=== PATIENT | female | born 1950 | race Caucasian/White ===

== ENCOUNTER → 2016-06-18 | Outpatient (CLI) | payer OTHER ==
[~2016-06-18] MED LIST: AMLO5TAB2 PO; MTF500T PO; SMV20T PO
--- OUTSIDE RECORDS SUMMARY | 2016-06-18 15:26 | XMS REPORT | Continuity of Care Document ---
Author Author [facility] Organization [facility] Address Unknown Phone Unavailable Care Team Providers Care Imaging Account Manager Name Role Phone DebbiMarvin cervantes PCP [phone] Source Comments Some departments are not documenting in the electronic medical record. If you do not see the information that you expected, contact Release of Information in the Health Information Management department at [phone] for further assistance in locating additional records.[facility] Active Allergies and Adverse Reactions No Known Allergies Current Medications Prescription Sig. Disp. Refills Start End Date Status Date amLODIPine (NORVASC) 5 mg Take 5 mg by mouth daily. Active tablet simvastatin (ZOCOR) 20 mg Take 20 mg by mouth at Active tablet bedtime daily. metFORMIN (GLUCOPHAGE) Take 500 mg by mouth Active 500 mg tablet daily. ALPRAZolam (XANAX) 0.5 mg Take 1 mg by mouth at Active tablet bedtime daily. MULTIVITAMINS WITH Take by mouth. Active FLUORIDE (MULTI-VITAMIN PO) valsartan (DIOVAN) 320 mg Take 320 mg by mouth Active tablet daily. Active Problems Problem Noted Date Fasciculations 11/07/2013 Most Recent Encounters Date Type Specialty Providers Description 04/25/2016 Telephone Neurology Joseph Escalante MD Appointment Request - MUB to schedule 04/02/2016 Telephone Neurology Allan Blackmon DO Prior Authorization - skin biopsy; Referral 03/28/2016 Office Visit Neurology Allan Blackmon DO ITB syndrome ( Primary Dx); Fasciculations Social History Tobacco Use Types Packs/Day Years Used Date Former Smoker Quit: 06/08/1999 Tobacco Cessation: Counseling Given: Yes Comments: Alcohol Use Drinks/Week oz/Week Comments Yes 3 Drinks per week Last Filed Vital Signs Vital Sign Reading Time Taken Blood Pressure 144/80 03/28/2016 8:21 AM CDT Pulse 97 03/28/2016 8:21 AM CDT Temperature 36.9 C (98.4 F) 03/28/2016 8:21 AM CDT Respiratory Rate - - Height 1.575 m (5' 2.01") 03/28/2016 8:21 AM CDT Weight 86.637 kg (191 lb) 03/28/2016 8:21 AM CDT Body Mass Index 34.93 03/28/2016 8:21 AM CDT Oxygen Saturation 97% 03/28/2016 8:21 AM CDT Plan of Care Health Maintenance Due Date Last Done Comments Hepatitis C Screening 1950 Physical (Comprehensive) 1957 Exam Pertussis Vaccine 1961 Tetanus Vaccine 1967 Breast Cancer Screening 1990 Colorectal Cancer 2000 Screening Shingles Vaccine 2010 Osteoporosis Screening 2015 Prevnar/Pneumovax (#1) 2015 Influenza Vaccine 02/07/2016 Results from Last 3 Months Not on file
--- NOTE | 2016-06-18 15:55 | Diagnostic Imaging Report ---
INDICATION: Wheezing with productive cough. FINDINGS: Some flattening of the diaphragms and bilateral mild symmetrical hyperexpansion of the lungs. There is borderline thickening of the central airways but no infiltrate. No effusion, pneumothorax or failure. IMPRESSION: Upper limits normal lung volumes with borderline thickening of the central airways but no pneumonia or acute pleural pathology. Dictated by: Dictated on workstation # [id number]
== END ==
LOC: RAD 15:22
PROVIDERS: ATTEND Family Medicine
DX: R06.2 Wheezing (principal); R05 Cough
CPT/HCPCS: 71020

== ENCOUNTER 2016-11-26 05:30 | Outpatient (CLI) | payer BC ==
[~2016-11-26] VITALS: Ht 162.6 cm; Wt 86.2 kg
[~2016-11-26 05:30] MED LIST changes: -ALPR1TAB2 PO; -CALC-654 PO; -FURO-125 PO; -LATA2.5D5 OU; -MAGN250T13 PO; -PANT40TA2 PO; -VALS320T14 PO
[2016-11-26] MEDS ORDERED: ALPR1TAB2 PO (13:35)
[2016-11-26] MEDS ORDERED: LATA2.5D5 OU (13:35)
[2016-11-26] MEDS ORDERED: FURO-125 PO (13:35)
[2016-11-26] MEDS ORDERED: MAGN250T13 PO (13:35)
[2016-11-26] MEDS ORDERED: CALC-654 PO (13:35)
[2016-11-26] MEDS ORDERED: VALS320T14 PO (13:35)
[2016-11-28] MEDS ORDERED: PANT40TA2 PO (12:02)
== END 2016-11-26 13:38 ==
LOC: PREOP 05:30
PROVIDERS: ATTEND Surgery Pediatric Surgery
DX: Z01.818 Encounter for other preprocedural examination (principal); Z12.11 Encounter for screening for malignant neoplasm of colon; Z86.010 Personal history of colon polyps; K21.9 Gastro-esophageal reflux disease without esophagitis

== ENCOUNTER → 2016-11-26 | Outpatient (CLI) | payer BC, OTHER ==
[~2016-11-26] MED LIST changes: +ALPR1TAB2 PO; +CALC-654 PO; +FURO-125 PO; +LATA2.5D5 OU; +MAGN250T13 PO; +PANT40TA2 PO; +VALS320T14 PO
--- NOTE | 2016-11-28 10:17 | Diagnostic Imaging Report ---
Bilateral screening mammogram The current study was also evaluated with a Computer Aided Detection (CAD) system. Indication: Screening. No current complaints stated on the questionnaire. COMPARISON: 02/29/16 FINDINGS: The breasts are composed of scattered fibroglandular densities. Occasional benign-appearing calcifications are seen. Allowing for technique and positional differences, no suspicious change is seen. IMPRESSION: No significant change. ACR BI-RADS Category 2: Benign findings. Result letter will be mailed to the patient. Note: At least 10% of breast cancer is not imaged by mammography. Dictated by: Dictated on workstation # [id number]
== END ==
LOC: RAD 15:14
PROVIDERS: ATTEND Family Medicine
DX: Z12.31 Encounter for screening mammogram for malignant neoplasm of breast (principal)
CPT/HCPCS: 77067

== ENCOUNTER 2016-11-28 09:28 | Day surgery (SDC) | payer BC, OTHER ==
[~2016-11-28] VITALS: Ht 162.6 cm; Wt 86.2 kg
[~2016-11-28 09:28] MED LIST changes: +ALPR1TAB2 PO; +CALC-654 PO; +FURO-125 PO; +LATA2.5D5 OU; +MAGN250T13 PO; +VALS320T14 PO
--- NOTE | 2016-11-28 09:29 | Conscious Sedation/ASA ---
Conscious Sedation Pre-Proced Time Reviewed: 09:00 ASA Class: 2 Airway Mallampati Classification: (huslia appropriate class) I. II. III, IV Lungs Heart ASA score ASA 1: a normal healthy patient ASA 2: a patient with a mild systemic disease (mid diabetes, controlled hypertension, obesity ASA 3: a patient with a severe systemic disease that limits activity (angina , COPD, prior Myocardial infarction) ASA 4: a patient with an incapacitating disease that is a constant threat to life (CHF, renal failure) ASA 5: a moribund patient not expected to survive 24 hrs. (ruptured aneurysm) ASA 6: a declared brain patient whose organs are being harvested. For emergent operations, add the letter E after the classification Grade 2 Sedation Plan: Analgesia, Amnesia, Plan communicated to team members, Discussed options with patient/fam, Discussed risks with patient/fam Note The patient is an appropriate candidate to undergo the planned procedure, sedation, and anesthesia. The patient immediately re-assessed prior to indication. CRISTIN MUSE MD Nov 28, 2016 9:29 am
[2016-11-28] MEDS ORDERED: morphine INJ 10 MG/ML 1ML (SYR OR VIAL) IV PRN (09:30)
[2016-11-28] MEDS ORDERED: ACETAMINOPHEN 325 MG TABLET/CAPLET (TYLENOL) PO PRN (09:30)
[2016-11-28] MEDS ORDERED: ONDANSETRON 4 MG/2 ML (SDV) Z0FRAN IV PRN (09:30)
[2016-11-28] MEDS ORDERED: HYDROcodone/APAP 5 MG/325 MG (LORTAB) TAB PO PRN (09:30)
--- NOTE | 2016-11-28 09:30 | Progress Note-Pre Operative ---
Pre-Operative Progress Note H&P Reviewed The H&P was reviewed, patient examined and no changes noted. Date Seen by Provider: Nov 28, 2016 Time Seen by Provider: 09:00 Date H&P Reviewed: Nov 28, 2016 Time H&P Reviewed: 09:00 Pre-Operative Diagnosis: hx of colon polyp, GERD CRISTIN MUSE MD Nov 28, 2016 9:30 am
[2016-11-28] MEDS ORDERED: FLUMAZENIL (ROMAZICON) 0.1 MG/ML 5 ML VIAL INJ PRN (09:45)
[2016-11-28] MEDS ORDERED: HURRICAINE EXT TUBE (BENZOCAINE) XX PRN (09:45)
[2016-11-28] MEDS ORDERED: LIDOCAINE JELLY 2% (XYLOCAINE) 5 ML TUBE MM PRN (09:45)
[2016-11-28] MEDS ORDERED: NALOXONE 0.4 MG/ML 1 ML (NARCAN) VIAL IVP PRN (09:45)
[2016-11-28] MEDS ORDERED: NS IV 500 ML 500 ML IV PRN (09:55)
[2016-11-28 09:56] VITALS: BP 150/91
[2016-11-28] MEDS ORDERED: MIDAZOLAM 2 MG/2 ML (VERSED) VIAL ONE ×7 (10:18→11:05)
[2016-11-28] MEDS ORDERED: HURRICAINE EXT TUBE (BENZOCAINE) ONE (10:19)
[2016-11-28] MEDS ORDERED: fentaNYL INJECTION 100 MCG/2 ML AMP ONE ×3 (10:19→11:10)
[2016-11-28] MEDS ORDERED: LIDOCAINE JELLY 2% (XYLOCAINE) 5 ML TUBE ONE (10:19)
[2016-11-28] MEDS: MIDAZOLAM 2 MG/2 ML (VERSED) VIAL IVP PRN ×7 (10:33→11:00)
[2016-11-28] MEDS: fentaNYL INJECTION 100 MCG/2 ML AMP IVP PRN ×4 (10:34→11:20)
[2016-11-28] MEDS ORDERED: ONDANSETRON 4 MG/2 ML (SDV) Z0FRAN ONE (11:27)
[2016-11-28] MEDS ORDERED: NS IV 500 ML 500 ML ONE (11:30)
[2016-11-28 11:55] VITALS: BP 136/88
--- NOTE | 2016-11-28 12:01 | Progress Note-Post Operative ---
Post-Operative Progess Note Surgeon (s)/Field Service Rep (s) Surgeon CRISTIN MUSE MD Field Service Rep: none Pre-Operative Diagnosis hx of colon polyp, GERD Post-Operative Diagnosis reflux eosphagitis(class B), small HH(1cm), moderate gastritis. chronic stage 2 ext and int hemorrhoids, sessile ascending colon polyp (1.25x0.5cm) Procedure & Operative Findings Date of Procedure 11/28/16 Procedure Performed/Findings EGD with bx. Colonoscopy with polypectomy and submucosal injection. Anesthesia Type CS Estimated Blood Loss Estimated blood loss (mL): minimal Specimens/Packing Specimens Removed GE jxn, antrum, ascending colon polyp CRISTIN MUSE MD Nov 28, 2016 12:01 pm
[2016-11-28] MEDS ORDERED: PANT40TA2 PO (12:02)
--- NOTE | 2016-11-28 12:03 | Discharge Inst-Surgical ---
D/C Lap Instructions-MICHA New, Converted, or Re-Newed RX: RX on Chart Follow Up Appt in 2 weeks Activity as tolerated High Fiber Diet 25g or more per day Avoid Alcohol, Caffeine, Spicy Yaurel and Acid foods. Drink 64 fluid oz or more of fluids per day. Symptoms to Report: Fever over 101 degree F, Nausea/Vomiting If any problems/questions: Contact your physician or go to Emergency Room CRISTIN MUSE MD Nov 28, 2016 12:03 pm
[2016-11-28 12:25] VITALS: BP 120/77
[2016-11-28 12:35] VITALS: BP 120/77
--- NOTE | 2016-11-28 19:49 | OPERATIVE REPORT ---
DATE OF SERVICE: 11/28/2016 ATTENDING PHYSICIAN: Marvin Weston DO PREOPERATIVE DIAGNOSES: History of colon polyps, gastroesophageal reflux disease. POSTOPERATIVE DIAGNOSES: Reflux esophagitis class B, small hiatal hernia approximately 1 cm in size, moderate gastritis. Chronic stage II external and internal hemorrhoids, sessile polyp of the ascending colon approximately 1.25 cm in size. PROCEDURE: EGD with biopsy, colonoscopy with biopsy, and submucosal injection. SURGEON: Cristin Muse MD ANESTHESIA: Conscious sedation. ESTIMATED BLOOD LOSS: Minimal. FINDINGS: EGD: Reflux esophagitis class B. No strictures or ulcerations, small hiatal hernia approximately 1 cm in size. Moderate severity gastritis more towards the stomach antrum. There were no formal ulcers, polyps or any neoplasms. Pylorus and duodenum appeared normal. Colonoscopy: Chronic stage II external and internal hemorrhoids, not actively edematous nor inflamed and no bleeding. There was a sessile polyp of one of the folds of the ascending colon which was oval in shape, in approximately 1.25 cm in largest diameter; however, thin and approximately 5 mm wide. DISPOSITION: The patient tolerated the procedure well. INDICATIONS: The patient is a 66-year-old female with history of colon polyp. Her first colonoscopy was in June 2011. Two polyps were identified of the splenic flexure and two of the distal transverse colon, and three of the sigmoid colon, which were all biopsied and found to be benign hyperplastic polyps as well as a tubular adenoma. She had a followup colonoscopy in 2012 which did not show any polyps. Since that time she has been doing well and does not report any major issues with diarrhea nor constipation as well as no red blood per rectum nor any dark tarry stools. She states that she has had a history of gastroesophageal reflux disease which has worsened. She will feel a burning sensation in the epigastric region as well as increased belching. DESCRIPTION OF PROCEDURE: The patient was brought to the endoscopy suite, laid in the left lateral decubitus position with the head slightly elevated. After adequate IV pain and sedative medications and conscious sedation anesthesia, the mouthpiece was applied. Endoscope was placed in the mouth, visualizing the pharynx and hypopharyngeal region. Vocal cords, epiglottis and vallecula identified and appeared to be normal. The endoscope was then gently intubated in the esophageal opening and esophagus insufflated. The endoscope was then advanced to the first, second, and third portions of the esophagus. At the level of the GE junction, a reflux esophagitis class B identified. There were no ulcers or strictures identified in this region. A biopsy was taken with forceps with visualization of good hemostasis. The endoscope was then easily advanced in the stomach. The endoscope retroflexed, visualizing a small hiatal hernia approximately 1 cm in size. There was a moderate severity gastritis, more focused towards the stomach antrum. There were no formal ulcers, polyps or any neoplasms identified. A biopsy was taken of the stomach antrum with visualization of good hemostasis. The endoscope was then advanced to the pylorus into the first and second portions of the duodenum, which appeared to be normal. The endoscope was then slowly withdrawn taking a second look and suctioning residual air with no additional findings. The patient tolerated this portion of the procedure well. We will recommend the necessary lifestyle and diet accommodation including small and more frequent meals, avoiding eating at night as well as head elevation while laying supine. Medical weight loss regimen would also benefit her symptoms. We will also recommend cessation from caffeinated beverages, alcoholic beverages as well as spicy, greasy, and acidic foods. We will also start her on Protonix 40 mg daily. Under the same conscious sedation anesthesia, we then proceeded with the colonoscopy portion of the procedure. A digital rectal examination was performed which revealed chronic stage II external and internal hemorrhoids, not actively demonstrating inflammation or no bleeding. Normal sphincter tone was felt and there were no palpable masses. The endoscope was then intubated to the anus and rectum gently insufflated. The endoscope was then advanced to the valves of Mcdonald of the rectum with no polyps or any neoplasms identified. We then proceeded through the sigmoid colon where no diverticulosis identified. The endoscope was then advanced to the remainder of the descending, transverse, and ascending colon. At the level of the ascending colon, along one of the folds, was a oval shaped sessile polyp approximately 1.25 x 0.5 cm in size. This was biopsied and destroyed using a biopsy forceps and electrocautery with visualization of good hemostasis. This was also injected submucosally with black ink. The endoscope was then advanced to the cecum which was normal. The endoscope was then slowly withdrawn while taking a second look and suctioning of residual air with no additional findings. The patient tolerated the procedure well. We will have her continue with medical management with high fiber diet with at least 25 grams of fiber per day as well as at least 64 fluid ounces of water daily to promote soft stools on a daily basis. We will await the biopsy results; however, recommended a followup colonoscopy within the next year. Job ID: [id number] DocumentID: [id number] Dictated Date: 11/28/2016 11:47:21 Loan Supervisor Date: 11/28/2016 19:48:31 Dictated By: CRISTIN MUSE MD
--- OUTSIDE RECORDS SUMMARY | 2016-12-01 14:43 | XMS REPORT | Continuity of Care Document ---
Author Author [facility] Organization [facility] Address Unknown Phone Unavailable Care Team Providers Care Accounting Associate Name Role Phone Johanachristina Marvin PCP [phone] Source Comments Some departments are not documenting in the electronic medical record. If you do not see the information that you expected, contact Release of Information in the Health Information Management department at [phone] for further assistance in locating additional records.[facility] Active Allergies and Adverse Reactions No Known [...] Active Problems Problem Noted Date Fasciculations 11/07/2013 Social History Tobacco Use Types Packs/Day Years [...] Screening 2015 Prevnar/Pneumovax (#1) 2015 Influenza Vaccine 02/06/2017 Results from Last 3 Months Not on file
--- OUTSIDE RECORDS SUMMARY | 2016-12-01 14:44 | XMS REPORT | Continuity of Care Document ---
Author Author [facility] Organization [facility] Address Unknown Phone Unavailable Allergies Active Description Code Type Severity Reaction Onset Reported/Identified Relationship to Patient Clinical Status Yes No Allergy Information Available [id number] Drug Allergy Unknown N/A 07/11/2011 Yes No Known Drug Allergies [id number] Drug Allergy Unknown N/ A 11/26/2016 Medications Problems Date Dx Coded Attending Type Code Diagnosis Diagnosed By 07/11/2011 Ot 211.3 BENIGN NEOPLASM LG BOWEL 07/11/2011 Ot 569.3 RECTAL ANAL HEMORRHAGE 07/11/2011 Ot 787.91 DIARRHEA 02/02/2013 CRISTIN MUSE MD Ot 455.0 INT HEMORRHOID W/O COMPL 02/02/2013 CRISTIN MUSE MD Ot 455.3 EXT HEMORRHOID W/O COMPL 02/02/2013 CRISTIN MUSE MD Ot V12.72 PERSONAL HISTORY OF COLONIC POLYPS 02/02/2013 CRISTIN MUSE MD Ot V67.09 SURGERY FOLLOW-UP, OTHER SURGERY 02/20/2016 Ot 733.90 BONE CARTILAGE DIS NOS 02/20/2016 CRISTIN MUSE MD Ot V72.84 EXAM PRE-OPERATIVE NOS 02/20/2016 CRISTIN MUSE MD Ot V72.84 EXAM PRE-OPERATIVE NOS 02/20/2016 YISEL MICHAELS DO Ot 729.81 SWELLING OF LIMB 02/20/2016 YISEL MICHAELS DO Ot V76.12 OTH SCREEN MAMMO-MALIGN NEOPLASM OF [place] 02/20/2016 YISEL MICHAELS DO Ot 627.1 POSTMENOPAUSAL BLEEDING 02/20/2016 YISEL MICHAELS DO Ot V45.51 PRESENCE OF INTRAUTERINE CONTRACEPTIVE D 02/20/2016 YISEL MICHAELS DO Ot 733.90 BONE CARTILAGE DIS NOS 02/20/2016 YISEL MICHAELS DO Ot V17.81 FAMILY HISTORY, OSTEOPOROSIS 02/20/2016 YISEL MICHAELS DO Ot V76.12 OTH SCREEN MAMMO-MALIGN NEOPLASM OF [place] 02/20/2016 XENIA BARNESYISEL Ot V82.81 SCREENING FOR OSTEOPOROSIS 02/20/2016 Ot 733.90 BONE CARTILAGE DIS NOS 02/20/2016 CRISTIN MUSE MD Ot V72.84 EXAM PRE-OPERATIVE NOS 02/20/2016 CRISTIN MUSE MD Ot V72.84 EXAM PRE-OPERATIVE NOS 02/20/2016 XENIA BARNESYISEL Ot 729.81 SWELLING OF LIMB 02/20/2016 XENIA BARNESYISEL Ot V76.12 OTH SCREEN MAMMO-MALIGN NEOPLASM OF [place] 02/20/2016 XENIA BARNES, YISEL Stout Ot 627.1 POSTMENOPAUSAL BLEEDING 02/20/2016 XENIA BARNESYISEL Ot V45.51 PRESENCE OF INTRAUTERINE CONTRACEPTIVE D 02/20/2016 XENIA BARNESYISEL Ot 733.90 BONE CARTILAGE DIS NOS 02/20/2016 XENIA BARNESYISEL Ot V17.81 FAMILY HISTORY, OSTEOPOROSIS 02/20/2016 XENIA BARNESYISEL Ot V76.12 OTH SCREEN MAMMO-MALIGN NEOPLASM OF [place] 02/20/2016 XENIA BARNESYISEL Ot V82.81 SCREENING FOR OSTEOPOROSIS 02/21/2016 XENIA BARNESYISEL Ot N28.9 DISORDER OF KIDNEY AND URETER, UNSPECIFI 03/04/2016 XENIA BARNESYISEL Ot Z12.31 ENCNTR SCREEN MAMMOGRAM FOR MALIGNANT NE 03/21/2016 XENIA BARNESYISEL Ot Z12.31 ENCNTR SCREEN MAMMOGRAM FOR MALIGNANT NE 06/18/2016 Ot 733.90 BONE CARTILAGE DIS NOS 06/18/2016 CRISTIN MUSE MD Ot V72.84 EXAM PRE-OPERATIVE NOS 06/18/2016 CRISTIN MUSE MD Ot V72.84 EXAM PRE-OPERATIVE NOS 06/18/2016 XENIA BARNESYISEL Ot 729.81 SWELLING OF LIMB 06/18/2016 XENIA BARNESYISEL Ot V76.12 OTH SCREEN MAMMO-MALIGN NEOPLASM OF [place] 06/18/2016 XENIA BARNESYISEL Ot 627.1 POSTMENOPAUSAL BLEEDING 06/18/2016 XENIA BARNESYISEL Ot V45.51 PRESENCE OF INTRAUTERINE CONTRACEPTIVE D 06/18/2016 GELLENDER DO, YISEL Stout Ot 733.90 BONE CARTILAGE DIS NOS 06/18/2016 APOORVADER DO, YISEL Stout Ot V17.81 FAMILY HISTORY, OSTEOPOROSIS 06/18/2016 XENIA DO, YISEL Stout Ot V76.12 OTH SCREEN MAMMO-MALIGN NEOPLASM OF [place] 06/18/2016 GORDONLENDER DO, YISEL Stout Ot V82.81 SCREENING FOR OSTEOPOROSIS 06/18/2016 [facility] YISEL Stout Ot R25.1 TREMOR, UNSPECIFIED 06/18/2016 [facility], YISEL Stout Ot R26.81 UNSTEADINESS ON FEET 06/18/2016 GELLENDER DO, YISEL Stout Ot R42 DIZZINESS AND GIDDINESS 06/18/2016 GELLENDER DO, YISEL Stout Ot N28.9 DISORDER OF KIDNEY AND URETER, UNSPECIFI 06/18/2016 GELLENDER DO, YISEL Stout Ot Z12.31 ENCNTR SCREEN MAMMOGRAM FOR MALIGNANT NE 07/18/2016 [facility], YISEL Stout Ot R05 COUGH 07/18/2016 [facility] Ot R06.2 WHEEZING 11/24/2016 Ot 733.90 BONE CARTILAGE DIS NOS 11/24/2016 CRISTIN MUSE MD Ot V72.84 EXAM PRE-OPERATIVE NOS 11/24/2016 CRISTIN MUSE MD Ot V72.84 EXAM PRE-OPERATIVE NOS 11/24/2016 [facility], YISEL Stout Ot 729.81 SWELLING OF LIMB 11/24/2016 [facility], YISEL Stout Ot V76.12 OTH SCREEN MAMMO-MALIGN NEOPLASM OF [place] 11/24/2016 [facility], YISEL Stout Ot 627.1 POSTMENOPAUSAL BLEEDING 11/24/2016 [facility] , YISEL Stout Ot V45.51 PRESENCE OF INTRAUTERINE CONTRACEPTIVE D 11/24/2016 [facility], YISEL Stout Ot 733.90 BONE CARTILAGE DIS NOS 11/24/2016 APOORVADER DO, YISEL Stout Ot V17.81 FAMILY HISTORY, OSTEOPOROSIS 11/24/2016 [facility], YISEL Stout Ot V76.12 OTH SCREEN MAMMO-MALIGN NEOPLASM OF [place] 11/24/2016 GORDONLENDER DO, YISEL Stout Ot V82.81 SCREENING FOR OSTEOPOROSIS 11/24/2016 [facility], YISEL Stout Ot R25.1 TREMOR, UNSPECIFIED 11/24/2016 [facility], YISEL Stout Ot R26.81 UNSTEADINESS ON FEET 11/24/2016 GELLENDER DO, YISEL Stout Ot R42 DIZZINESS AND GIDDINESS 11/24/2016 GELLENDER DO, YISEL Stout Ot N28.9 DISORDER OF KIDNEY AND URETER, UNSPECIFI 11/24/2016 GORDONLENDER DO, YISEL Stout Ot Z12.31 ENCNTR SCREEN MAMMOGRAM FOR MALIGNANT NE 11/24/2016 GELLENDER DO, YISEL Stout Ot R05 COUGH 11/24/2016 GELLENDER DO, YISEL Stout Ot R06.2 WHEEZING 11/26/2016 Ot 733.90 BONE CARTILAGE DIS NOS 11/26/2016 MICHA ROEM, CRISTIN Ot V72.84 EXAM PRE-OPERATIVE NOS 11/26/2016 MICHA ROME, CRISTIN Ot V72.84 EXAM PRE-OPERATIVE NOS 11/26/2016 XENIA BARNES, YISEL Stout Ot 729.81 SWELLING OF LIMB 11/26/2016 [facility], YISEL Stout Ot V76.12 OTH SCREEN MAMMO-MALIGN NEOPLASM OF [place] 11/26/2016 [facility], YISEL Stout Ot 627.1 POSTMENOPAUSAL BLEEDING 11/26/2016 [facility], YISEL Stout Ot V45.51 PRESENCE OF INTRAUTERINE CONTRACEPTIVE D 11/26/2016 [facility], YISEL Stout Ot 733.90 BONE CARTILAGE DIS NOS 11/26/2016 XENIA BARNES, YISEL Stout Ot V17.81 FAMILY HISTORY, OSTEOPOROSIS 11/26/2016 [facility], YISEL Stout Ot V76.12 OTH SCREEN MAMMO-MALIGN NEOPLASM OF [place] 11/26/2016 XENIA BARNES, YISEL Stout Ot V82.81 SCREENING FOR OSTEOPOROSIS 11/26/2016 [facility], YISEL Stout Ot R25.1 TREMOR, UNSPECIFIED 11/26/2016 [facility], YISEL Stout Ot R26.81 UNSTEADINESS ON FEET 11/26/2016 APOORVADER DO, YISEL Stout Ot R42 DIZZINESS AND GIDDINESS 11/26/2016 GORDONLENDER DO, YISEL Stout Ot N28.9 DISORDER OF KIDNEY AND URETER, UNSPECIFI 11/26/2016 GORDONLENDER DO, YISEL Stout Ot Z12.31 ENCNTR SCREEN MAMMOGRAM FOR MALIGNANT NE 11/26/2016 [facility], YISEL Stout Ot R05 COUGH 11/26/2016 GELLENDER DO, YISEL Stout Ot R06.2 WHEEZING Procedures Results Test Result Range [id number] - 02/20/16 07:15 Serum or plasma urea nitrogen measurement (mass/volume) 13 mg/dL 7-18 Serum or plasma creatinine measurement (mass/volume) 0.74 mg /dL 0.60-1.30 Serum or plasma urea nitrogen/creatinine mass ratio 18 NRG Serum or plasma creatinine measurement with calculation of estimated glomerular filtration rate > NRG Encounters ACCT No. Visit Date/Time Discharge Status Pt. Type Provider Facility Loc./Unit Complaint [id number] 11/28/2016 09:28:00 2016 12:35:00 DIS Outpatient CRISTIN MUSE MD [facility] ENDO GERD; HX POLYPS [id number] 11/26/2016 05:30:00 2016 13:38:00 DIS Outpatient CRISTIN MUSE MD [facility] PREOP GERD; HX POLYPS [id number] 01/04/2015 08:37:00 2014 23:59:59 [facility] Outpatient YISEL MICHAELS DO [facility] RAD SCREENING,HX OF OSTEOPOROSIS IN FAMILY [id number] 08/30/2014 15:27:00 2014 23:59:59 [facility] Outpatient YISEL MICHAELS DO [facility] RAD POST MENOPAUSAL SPOTTING, IUD [id number] 11/25/2013 11:14:00 2013 23:59:59 [facility] Outpatient YISEL MICHAELS DO [facility] RAD SCREENING, SWOLLEN LEFT FOOT ANKLE X 3 WEEKS [id number] 02/02/2013 07:10:00 2012 10:55:00 DIS Outpatient CRISTIN MUSE MD [facility] SDC HX POLYPS,REFLUX [id number] 01/26/2013 07:12:00 2012 23:59:59 [facility] Outpatient CRISTIN MUSE MD [facility] PREOP HX POLYPS [id number] 12/22/2012 07:26:00 2012 23:59:59 [facility] Outpatient CRISTIN MUSE MD [facility] PREOP HISTORY OF POLYPS [id number] 11/26/2016 15:14:00 ACT Outpatient XENIA YISEL BARNES [facility] RAD SCREENING Z12.31 [id number] 06/18/2016 15:22:00 ACT Outpatient XENIA YISEL BARNES [facility] RAD WHEEZING,COUGH [id number] 02/29/2016 10:54:00 ACT Outpatient XENIA BARNES YISEL [facility] RAD SCREENING [id number] 02/20/2016 15:03:00 ACT Outpatient XENIA YISEL BARNES [facility] RAD DIZZINESS,OFF BALANCE WHEN WALKING [id number] 02/20/2016 07:09:00 ACT Outpatient XENIA YISEL BARNES [facility] LAB RENAL INSUFFICIENCY [id number] 02/20/2016 07:09:00 Document Registration [id number] 02/20/2016 07:09:00 Document Registration [id number] 02/20/2016 07:09:00 Document Registration [id number] 03/12/2012 09:11:00 Document Registration [id number] 07/11/2011 06:20:00 Document Registration
== END 2016-11-28 12:35 | disposition home or self-care (01) ==
LOC: ENDO 09:28
PROVIDERS: ATTEND Surgery
DX: Z12.11 Encounter for screening for malignant neoplasm of colon (principal); K63.5 Polyp of colon; K64.1 Second degree hemorrhoids; K21.0 Gastro-esophageal reflux disease with esophagitis; K44.9 Diaphragmatic hernia without obstruction or gangrene; K29.70 Gastritis, unspecified, without bleeding; Z86.010 Personal history of colon polyps; E11.9 Type 2 diabetes mellitus without complications; E78.00 Pure hypercholesterolemia, unspecified; I10 Essential (primary) hypertension; Z79.84 Long term (current) use of oral hypoglycemic drugs; Z79.899 Other long term (current) drug therapy

== ENCOUNTER → 2017-12-15 | Outpatient (CLI) | payer MEDICARE, OTHER ==
[~2017-12-15] MED LIST changes: +GLUC-116 PO; +METF500T5 PO; +PANT40TA2 PO; +SIMV20TA3 PO; -VALS320T14 PO; +VALS320T15 PO
--- NOTE | 2017-12-15 16:28 | Diagnostic Imaging Report ---
INDICATION: Routine screening. COMPARISON: 11/26/2016 and 02/29/2016. TECHNIQUE: 2D and 3D bilateral screening mammography was performed with CAD. FINDINGS: Scattered fibroglandular densities are identified bilaterally. There is a focal density in the right breast at the nipple line, best seen on the CC view, approximately 6 cm deep to the nipple. No definite corresponding density on the MLO view is identified. Additional views are recommended. The left breast is unremarkable. There are benign calcifications present bilaterally. The axillae are unremarkable. IMPRESSION: Right breast density. Additional views including spot compression and rolled CC views are recommended for further evaluation. ACR BI-RADS Category 0: Incomplete. (Needs additional imaging evaluation). Result letter will be mailed to the patient. Note: At least 10% of breast cancer is not imaged by mammography. Dictated by: Dictated on workstation # [id number]
== END ==
LOC: RAD 12:47
PROVIDERS: ATTEND Family Medicine
DX: Z12.31 Encounter for screening mammogram for malignant neoplasm of breast (principal)
CPT/HCPCS: 77067

== ENCOUNTER 2017-12-16 05:38 | Outpatient (CLI) | payer MEDICARE, OTHER ==
[~2017-12-16] VITALS: Ht 162.6 cm; Wt 86.2 kg
[~2017-12-16 05:38] MED LIST changes: -GLUC-116 PO; -METF500T5 PO; -SIMV20TA3 PO
[2017-12-16] MEDS ORDERED: METF500T5 PO (10:58)
[2017-12-16] MEDS ORDERED: GLUC-116 PO (10:58)
[2017-12-16] MEDS ORDERED: SIMV20TA3 PO (10:58)
== END 2017-12-16 12:09 | disposition home or self-care (01) ==
LOC: PREOP 05:38
PROVIDERS: ATTEND Surgery
DX: Z01.818 Encounter for other preprocedural examination (principal)

== ENCOUNTER 2017-12-23 09:26 | Day surgery (SDC) | payer MEDICARE, OTHER ==
[~2017-12-23] VITALS: Ht 162.6 cm; Wt 86.2 kg
[~2017-12-23 09:26] MED LIST changes: +GLUC-116 PO; +METF500T5 PO; +SIMV20TA3 PO
[2017-12-23] MEDS ORDERED: NS IV 500 ML 500 ML ONE ×2 (09:35→10:55)
[2017-12-23] MEDS: NS IV 500 ML 500 ML IV PRN ×2 (09:45→11:05)
[2017-12-23] MEDS ORDERED: LIDOCAINE JELLY 2% (XYLOCAINE) 5 ML TUBE MM PRN (09:45)
[2017-12-23] MEDS ORDERED: MIDAZOLAM 2 MG/2 ML (VERSED) VIAL ONE ×4 (09:49)
[2017-12-23] MEDS ORDERED: LIDOCAINE JELLY 2% (XYLOCAINE) 5 ML TUBE ONE (09:50)
[2017-12-23] MEDS ORDERED: fentaNYL INJECTION 100 MCG/2 ML AMP ONE (09:50)
[2017-12-23 09:56] VITALS: BP 151/94
[2017-12-23] MEDS: fentaNYL INJECTION 100 MCG/2 ML AMP IVP PRN ×2 (10:33→10:40)
--- NOTE | 2017-12-23 10:33 | Conscious Sedation/ASA ---
Conscious Sedation Pre-Proced Time Reviewed: 10:00 ASA Class: 2 Airway Mallampati Classification: ([place] appropriate class) I. II. III, IV Lungs Heart ASA score ASA 1: a normal healthy patient ASA 2: a patient with a mild systemic disease (mid diabetes, controlled hypertension, obesity ASA 3: a patient with a severe systemic disease that limits activity (angina , COPD, prior Myocardial infarction) ASA 4: a patient with an incapacitating disease that is a constant threat to life (CHF, renal failure) ASA 5: a moribund patient not expected to survive 24 hrs. (ruptured aneurysm) ASA 6: a declared brain patient whose organs are being harvested. For emergent operations, add the letter E after the classification Grade 2 Sedation Plan: Analgesia, Amnesia, Plan communicated to team members, Discussed options with patient/fam, Discussed risks with patient/fam Note The patient is an appropriate candidate to undergo the planned procedure, sedation, and anesthesia. The patient immediately re-assessed prior to indication. CRISTIN MUSE MD Dec 23, 2017 10:33 am
--- NOTE | 2017-12-23 10:34 | Progress Note-Pre Operative ---
Pre-Operative Progress Note H&P Reviewed The H&P was reviewed, patient examined and no changes noted. Date Seen by Provider: Dec 23, 2017 Time Seen by Provider: 10:00 Date H&P Reviewed: Dec 23, 2017 Time H&P Reviewed: 10:00 Pre-Operative Diagnosis: hx polyp CRISTIN MUSE MD Dec 23, 2017 10:34 am
[2017-12-23] MEDS: MIDAZOLAM 2 MG/2 ML (VERSED) VIAL IVP PRN ×4 (10:35→10:43)
[2017-12-23] MEDS ORDERED: proPOfol 200 MG/20 ML (DIPRIVAN) VIAL IV ONE (10:40)
[2017-12-23] MEDS ORDERED: ACETAMINOPHEN 325 MG TABLET PO PRN (10:45)
[2017-12-23] MEDS ORDERED: HYDROcodone/APAP 5 MG/325 MG (LORTAB) TAB PO PRN (10:45)
[2017-12-23] MEDS ORDERED: ONDANSETRON 4 MG/2 ML (SDV) Z0FRAN IV PRN (10:45)
[2017-12-23] MEDS ORDERED: morphine INJ 10 MG/ML 1ML (SYR OR VIAL) IV PRN (10:45)
[2017-12-23 11:45] VITALS: BP 121/55
--- NOTE | 2017-12-23 11:46 | Progress Note-Post Operative ---
Post-Operative Progess Note Surgeon (s)/Firer [employer]que Kiln (s) Surgeon CRISTIN MUSE MD Firer [employer]que Kiln: none Pre-Operative Diagnosis hx polyp Post-Operative Diagnosis chronic stage 2 ext and int hemorrhoids, mild-mod sigmoid diverticulosis, polyp ascending colon(12x5mm). Procedure & Operative Findings Date of Procedure 12/23/17 Procedure Performed/Findings Colonoscopy with bx and submucosal injection. Anesthesia Type MAC Estimated Blood Loss Estimated blood loss (mL): minimal Specimens/Packing Specimens Removed ascending colon polyp CRISTIN MUSE MD Dec 23, 2017 11:46 am
--- NOTE | 2017-12-23 11:47 | Discharge Inst-Surgical ---
D/C Lap Instructions-MICHA Follow Up Appt in 2 weeks Activity as tolerated High Fiber Diet 25g or more per day Avoid Alcohol, Caffeine, Spicy [place] and Acid foods. Drink 64 fluid oz or more of fluids per day. Symptoms to Report: Fever over 101 degree F, Nausea/Vomiting If any problems/questions: Contact your physician or go to Emergency Room CRISTIN MUSE MD Dec 23, 2017 11:47 am
[2017-12-23 12:05] VITALS: BP 127/74
[2017-12-23 12:16] VITALS: BP 127/74
--- NOTE | 2017-12-23 16:55 | OPERATIVE REPORT ---
DATE OF SERVICE: 12/23/2017 ATTENDING PRIMARY CARE PHYSICIAN: Dr. Weston. PREOPERATIVE DIAGNOSIS: History of colon polyp, approximately 1.25 cm x 5 mm, which was oval in shape of the ascending colon. POSTOPERATIVE DIAGNOSIS: The polyp appears to be stable, slightly smaller in size, which was again biopsied and submucosal injection. PROCEDURE: Colonoscopy with polypectomy with biopsy forceps and electrocautery and submucosal injection. SURGEON: Cristin Muse MD ANESTHESIA: Monitored anesthesia care. ESTIMATED BLOOD LOSS: Minimal. FINDINGS: Chronic stage II external and internal hemorrhoids, [id number] sigmoid diverticulosis, polyp of the ascending colon, which was oval in shape, approximately 1.2 cm in size x 5 mm. No other lesions identified. DISPOSITION: The patient tolerated the procedure well. INDICATIONS: The patient is a 67-year-old female with a history of colon polyps. Her first colonoscopy was in 06/2011 where polyps were identified. Two of the splenic flexure, two of the distal transverse colon and three of the sigmoid colon, which were all biopsied and found to be benign hyperplastic polyps as well as a tubular adenoma. She had a followup colonoscopy in 2012, which was normal. She then underwent an EGD and colonoscopy in 11/2016 where EGD showed a reflux esophagitis class B, small hiatal hernia 1 cm in size as well as moderate gastritis. The colonoscopy did show hemorrhoids as well as a sessile polyp of the ascending colon, approximately 1.25 cm x 5 mm in size. This was biopsied with forceps and electrocautery and the pathology report came back as a benign hyperplastic polyp. DESCRIPTION OF PROCEDURE: The patient was brought to the endoscopy suite, laid in the left lateral decubitus position. After adequate IV pain and sedative medications and monitored anesthesia care, a digital rectal examination was performed. Chronic stage II external and internal hemorrhoids were identified, which were not actively edematous nor inflamed and no bleeding. Normal sphincter tone was felt and there were no palpable masses. The endoscope was then intubated to the anus and rectum gently insufflated. The endoscope was then advanced to the valves of Mcdonald of the rectum with no polyps or any neoplasms identified. We then proceeded to the sigmoid colon where [id number] sigmoid diverticulosis was identified. There were no mucosal inflammatory changes to indicate any active diverticulitis. The endoscope was then advanced through the descending, transverse, and ascending colon. At the ascending colon at the previous polypectomy site, again was a sessile polyp which was slightly smaller in size, approximately 12x5 mm in size. A submucosal injection was then again performed and a biopsy in a piecemeal fashion using forceps and electrocautery was performed. The cecum was then identified and appeared to be normal. The endoscope was then slowly withdrawn while taking a second look and suctioning of residual air with no additional findings. The patient tolerated the procedure well. We will await the biopsy results. The previous pathology showed a benign hyperplastic polyp, which does not have any malignancy potential; however, this lesion has recurred or has persisted. We will again await the biopsy results and again if this is benign, we will proceed with followup colonoscopy; however, if other changes are identified on pathology, namely a villous component of an adenomatous polyp, this wound increase malignancy trasformation risk to about 20%. If this is the case, she may still opt for follow-up colonoscopies or some form of formal resection for definitive pathologic diagnosis and total excision of the lesion as well as less frequency of follow- up colonoscopies. Job ID: [id number] DocumentID: [id number] Dictated Date: 12/23/2017 11:38:56 Supervisor Pig Machine Date: 12/23/2017 16:55:24 Dictated By: CRISTIN MUSE MD [facility]
== END 2017-12-23 12:17 | disposition home or self-care (01) ==
LOC: ENDO 09:26
PROVIDERS: ATTEND Surgery
DX: K63.5 Polyp of colon (principal); K57.30 Diverticulosis of large intestine without perforation or abscess without bleeding; K64.1 Second degree hemorrhoids; E11.9 Type 2 diabetes mellitus without complications; E78.00 Pure hypercholesterolemia, unspecified; I10 Essential (primary) hypertension; K21.9 Gastro-esophageal reflux disease without esophagitis; Z79.84 Long term (current) use of oral hypoglycemic drugs; Z79.899 Other long term (current) drug therapy; Z96.652 Presence of left artificial knee joint

== ENCOUNTER → 2017-12-30 | Outpatient (CLI) | payer MEDICARE, OTHER ==
--- NOTE | 2017-12-30 18:57 | Diagnostic Imaging Report ---
EXAMINATION: Ultrasound of the right breast, limited. INDICATION: Abnormal mammogram. FINDINGS: The screening mammogram performed on 12/15/2017 noted a focal density in the mid portion of the right breast in the craniocaudad view. There was no corresponding abnormality seen on the MLO view. The diagnostic mammogram performed earlier today failed to show any sign of malignancy. On this exam, there is no discrete solid or cystic mass evident. I suspect that the density in question is secondary to fibroglandular tissue alone. Even so, it may prove worthwhile to have a short-term (six-month) followup mammogram of the right breast for continued evaluation. IMPRESSION: There is no evidence of malignancy. Recommendations as above. ACR BI-RADS Category 3: Probably benign findings. Dictated by: Dictated on workstation # [id number]
--- NOTE | 2017-12-31 14:28 | Diagnostic Imaging Report ---
EXAMINATION: Unilateral diagnostic right mammogram. INDICATION: Abnormal screening mammogram. The current study was also evaluated with a Computer Aided Detection (CAD) system. FINDINGS: The screening mammogram performed on 12/15/2017 noted a focal density in the mid portion of the right breast on the craniocaudal view. There is no corresponding abnormality seen on the MLO view. For this exam, compression views of the area of concern and rolled views in the CC projection were obtained. The density in question seems to persist on the compression view but not on the rolled views. This density still cannot be identified on the ML view. This finding may merely be secondary to fibroglandular tissue as there was a similar-appearing density on the prior exam of 09/29/2012. Even so, I would recommend that ultrasound be performed for further study. IMPRESSION: Ultrasound will be recommended for further evaluation of the right breast. ACR BI-RADS Category 0: Incomplete. (Needs additional imaging evaluation). Result letter will be mailed to the patient. Note: At least 10% of breast cancer is not imaged by mammography. Dictated by: Dictated on workstation # [id number]
== END ==
LOC: RAD 08:33
PROVIDERS: ATTEND Family Medicine
DX: R92.8 Other abnormal and inconclusive findings on diagnostic imaging of breast (principal)

== ENCOUNTER → 2018-03-15 | Outpatient (CLI) | payer MEDICARE, OTHER ==
[~2018-03-15] MED LIST changes: +METF-397 PO; -METF500T5 PO
[2018-03-15 12:46] LABS: BILIRUBIN,URINE NEGATIVE (NEGATIVE); CLARITY,URINE CLEAR; COLOR,URINE YELLOW; GLUCOSE, URINE (UA) NEGATIVE (NEGATIVE); KETONES,URINE NEGATIVE (NEGATIVE); LEUKOCYTE ESTERASE ,URINE NEGATIVE (NEGATIVE); NITRITE,URINE NEGATIVE (NEGATIVE); PH,URINE 6 (5-9); PROTEIN,URINE NEGATIVE (NEGATIVE); UROBILINOGEN,URINE NORMAL (NORMAL)
[2018-03-15 13:17] LABS: BACTERIA,URINE NEGATIVE /HPF; WBC,URINE RARE /HPF
[2018-03-15 13:18] LABS: SQUAMOUS EPITHELIAL CELL,UR 0-2 /HPF
== END ==
LOC: LAB 12:24
PROVIDERS: ATTEND Family Medicine
DX: N39.0 Urinary tract infection, site not specified (principal)
CPT/HCPCS: 81000

== ENCOUNTER → 2018-06-24 | Outpatient (CLI) | payer MEDICARE, OTHER ==
--- NOTE | 2018-06-24 21:57 | Diagnostic Imaging Report ---
INDICATION: Right breast density. Patient presents for six-month followup. COMPARISON: Correlation is made with prior mammogram from 12/15/2017, 11/26/2016 and 02/29/2016. EXAMINATION: 2D and 3D lateral right diagnostic mammography was performed including CC, MLO and ML views. FINDINGS: Area of density in the central right breast on CC view is much less prominent on today's study and again most likely represents fibroglandular tissue. A discrete mass is not seen. No suspicious calcifications are identified. Right axilla are unremarkable. IMPRESSION: Six-month followup shows no significant abnormality. Area questioned in the central right breast on prior imaging is much less apparent on today's study and most likely represents fibroglandular tissue. Patient should return in six months for bilateral screening mammography. ACR BI-RADS Category 1: Negative. Result letter will be mailed to the patient. Note: At least 10% of breast cancer is not imaged by mammography. Dictated by: Dictated on workstation # [id number]
== END ==
LOC: RAD 14:03
PROVIDERS: ATTEND Family Medicine
DX: R92.2 Inconclusive mammogram (principal)

== ENCOUNTER → 2018-12-31 | Outpatient (CLI) | payer MEDICARE, OTHER ==
--- NOTE | 2018-12-31 20:15 | Diagnostic Imaging Report ---
INDICATION: Screening The current study was also evaluated with a Computer Aided Detection (CAD) system. 3-D Tomographic imaging was also performed. COMPARISON: Comparison is made with prior examinations of 06/24/2018, 12/15/2017, 11/26/2016, and 02/29/2016. FINDINGS: There are scattered fibroglandular densities bilaterally. There are a few benign type calcifications. There is no new dominant mass, spiculated lesion, or suspicious calcification identified. Skin, nipples, and axillae are unremarkable. IMPRESSION: Benign. ACR BI-RADS Category 2: Benign findings. Result letter will be mailed to the patient. Note: At least 10% of breast cancer is not imaged by mammography. Dictated by: Dictated on workstation # [id number]
== END ==
LOC: RAD 09:58
PROVIDERS: ATTEND Family Medicine
DX: Z12.31 Encounter for screening mammogram for malignant neoplasm of breast (principal)
CPT/HCPCS: 77067

== ENCOUNTER → 2019-05-16 | Outpatient (CLI) | payer MEDICARE, OTHER ==
[~2019-05-16] MED LIST changes: +SIMV20TA26 PO; -SIMV20TA3 PO
--- NOTE | 2019-05-16 15:28 | Diagnostic Imaging Report ---
INDICATION: Pain. TECHNIQUE: Three views of the right hand were obtained. FINDINGS: There is a comminuted fracture involving the proximal phalanx of the right fifth finger. There are marked degenerative changes of the DIP and to lesser degree the PIP joints. There is no other fracture or dislocation. The soft tissues are unremarkable. IMPRESSION: Minimally displaced comminuted fracture involving the proximal phalanx of the right fifth finger. Degenerative changes, particularly in the DIP joints, as described. Dictated by: Dictated on workstation # [id number]
== END ==
LOC: RAD 14:35
PROVIDERS: ATTEND Nurse Practitioner Family
DX: M19.041 Primary osteoarthritis, right hand (principal)
CPT/HCPCS: 73130

== ENCOUNTER → 2020-01-05 | Outpatient (CLI) | payer MEDICARE, OTHER ==
--- NOTE | 2020-01-05 11:54 | Diagnostic Imaging Report ---
EXAMINATION: Digital mammogram INDICATION: Bilateral screening This study is compared to the prior exam of 12/31/2018, 06/24/2018 and 12/15/2017. At this time there are no current complaints. The current study was also evaluated with a Computer Aided Detection (CAD) system. FINDINGS: There are scattered fibroglandular densities in both breasts which could obscure a lesion. Overall, there does not appear to have been any significant change when compared to the prior exam. No primary or secondary sign of malignancy is noted. IMPRESSION: There is no radiographic evidence for malignancy. ACR BI-RADS Category 1: Negative. Result letter will be mailed to the patient. Note: At least 10% of breast cancer is not imaged by mammography. Dictated by: Dictated on workstation # [id number]
== END ==
LOC: RAD 10:30
PROVIDERS: ATTEND Family Medicine
DX: Z12.31 Encounter for screening mammogram for malignant neoplasm of breast (principal)
CPT/HCPCS: 77063; 77067

== ENCOUNTER 2020-08-13 05:31 | Outpatient (RCR) | payer MEDICARE, OTHER ==
[~2020-08-13] VITALS: Ht 160 cm; Wt 88.5 kg
[~2020-08-13 05:31] MED LIST changes: +DULO60CA59 PO
== END 2020-08-13 10:21 | disposition home or self-care (01) ==
LOC: PREOP 05:31
PROVIDERS: ATTEND Surgery
DX: Z01.812 Encounter for preprocedural laboratory examination (principal); K21.9 Gastro-esophageal reflux disease without esophagitis; R14.0 Abdominal distension (gaseous); Z20.822 Contact with and (suspected) exposure to COVID-19; Z86.010 Personal history of colon polyps
CPT/HCPCS: 87635

== ENCOUNTER 2020-08-15 09:45 | Day surgery (SDC) | payer MEDICARE, OTHER ==
[~2020-08-15] VITALS: Ht 160 cm; Wt 88.5 kg
[2020-08-15] VITALS (9 sets, daily range): BP systolic 69–132; BP diastolic 43–82
[2020-08-15] MEDS ORDERED: LACTATED RINGERS 1,000 ML IV ONE (09:58)
[2020-08-15] MEDS ORDERED: LACTATED RINGERS 1,000 ML IV STA (10:05)
[2020-08-15] MEDS ORDERED: HURRICAINE EXT TUBE (BENZOCAINE) XX PRN (10:15)
[2020-08-15] MEDS ORDERED: LIDOCAINE JELLY 2% 6 ML SYRINGE MM PRN (10:15)
[2020-08-15] MEDS ORDERED: MIDAZOLAM 2 MG/2 ML (VERSED) VIAL ONE (10:18)
[2020-08-15] MEDS ORDERED: PROPOFOL INJECTION 0 ML IV ONE (10:18)
[2020-08-15] MEDS ORDERED: LIDOCAINE JELLY 2% 6 ML SYRINGE ONE (10:36)
[2020-08-15] MEDS ORDERED: HURRICAINE EXT TUBE (BENZOCAINE) ONE (10:36)
--- NOTE | 2020-08-15 10:36 | Progress Note-Pre Operative ---
Pre-Operative Progress Note H&P Reviewed The H&P was reviewed, patient examined and no changes noted. Date Seen by Provider: Aug 15, 2020 Time Seen by Provider: 10:30 Date H&P Reviewed: Aug 15, 2020 Time H&P Reviewed: 10:30 Pre-Operative Diagnosis: GERD, bloating, hx polyp CRISTIN MUSE MD Aug 15, 2020 10:36
--- NOTE | 2020-08-15 10:38 | Discharge Inst-Surgical ---
D/C Lap Instructions-MICHA Follow Up Appt in 2 weeks Activity as tolerated High Fiber Diet 25g or more per day Avoid Alcohol, Caffeine, Spicy [place] and Acid foods. Drink 64 fluid oz or more of fluids per day. Symptoms to Report: Fever over 101 degree F, Nausea/Vomiting If any problems/questions: Contact your physician or go to Emergency Room CRISTIN MUSE MD Aug 15, 2020 10:38
[2020-08-15] MEDS ORDERED: morphine INJ 10 MG/ML 1ML (SYR OR VIAL) IVP PRN ×2 (10:45)
[2020-08-15] MEDS ORDERED: HYDROcodone/APAP 5 MG/325 MG (LORTAB) TAB PO PRN (10:45)
[2020-08-15] MEDS ORDERED: ACETAMINOPHEN 325 MG TABLET PO PRN (10:45)
[2020-08-15] MEDS ORDERED: ONDANSETRON 4 MG/2 ML (SDV) Z0FRAN IVP PRN (10:45)
[2020-08-15] MEDS ORDERED: PROPOFOL INJECTION 50 ML IV ONE (10:53)
--- NOTE | 2020-08-15 11:31 | Progress Note-Post Operative ---
Post-Operative Progess Note Surgeon (s)/Endoscopy Technician (s) Surgeon CRISTIN MUSE MD Endoscopy Technician: none Pre-Operative Diagnosis GERD, bloating, hx polyp Post-Operative Diagnosis reflux esophagitis(stage 2), small HH(1cm), moderate gastritis. chronic stage 2 ext and int hemorrhoids. Procedure & Operative Findings Date of Procedure 08/15/20 Procedure Performed/Findings EGD with bx. colonoscopy Anesthesia Type mac Estimated Blood Loss Estimated blood loss (mL): minimal Specimens/Packing Specimens Removed ge jxn, antrum CRISTIN MUSE MD Aug 15, 2020 11:30
--- NOTE | 2020-08-15 14:25 | Anesthesia-General Post-Op ---
MAC Patient Condition Mental Status/LOC: Same as Preop Cardiovascular: Satisfactory Nausea/Vomiting: Absent Respiratory: Satisfactory Pain: Controlled Complications: Absent Post Op Complications Complications None Follow Up Care/Instructions Patient Instructions None needed. Anesthesiology Discharge Order Discharge Order Patient is doing well, no complaints, stable vital signs, no apparent adverse anesthesia problems. No complications reported per nursing. ADRIAN CASPER CRNA Aug 15, 2020 14:25
--- NOTE | 2020-08-15 16:06 | OPERATIVE REPORT ---
DATE OF SERVICE: 08/15/2020 ATTENDING PRIMARY CARE PHYSICIAN: Marvin Weston DO PREOPERATIVE DIAGNOSES: History of colon polyp, abdominal bloating and distension, gastroesophageal reflux disease. POSTOPERATIVE DIAGNOSES: Reflux esophagitis stage II, small hiatal hernia approximately 1.5 cm in size, moderate gastritis, chronic stage II external and internal hemorrhoids. Remainder of the rectum and colon were normal. PROCEDURE: EGD with biopsy, colonoscopy. SURGEON: Cristin Muse MD ANESTHESIA: Monitored anesthesia care. ESTIMATED BLOOD LOSS: Minimal. FINDINGS: Same as postoperative diagnoses. DISPOSITION: The patient tolerated the procedure well. INDICATIONS: The patient is a 70-year-old female who had her first colonoscopy in 06/2011 and she was found to have several polyps, which were small and biopsied and found to be benign hyperplastic polyps as well as one tubular adenoma. She then underwent a followup colonoscopy a year later, which was normal. She then underwent an EGD and colonoscopy in 11/2016. She was found to have a reflux esophagitis as well as a small hiatal hernia and a polyp of the ascending colon, which was biopsied and consistent with a benign hyperplastic polyp. We then followed this up with a polypectomy and submucosal injection, 12/23/2017. For the past 3 weeks, she has noticed increased abdominal bloating, constipation, increased gastroesophageal reflux disease. DESCRIPTION OF PROCEDURE: The patient was brought to the endoscopy suite, laid in the left lateral decubitus position with head slightly elevated. After adequate IV pain and sedative medications and monitored anesthesia care, the mouthpiece was applied. The endoscope was placed in the mouth, visualizing the pharynx and hypopharyngeal region. Vocal cords, epiglottis and vallecula identified and appeared to be normal. The endoscope was gently abated esophageal opening and esophagus insufflated. The endoscope was then advanced to the first, second and third portion of esophagus above the GE junction, reflux esophagitis stage II identified. There were no ulcers or strictures identified in this region. A biopsy was taken with forceps with visualization of good hemostasis. The endoscope was then advanced in the stomach and endoscope retroflexed, visualizing a small hiatal hernia approximately 1 cm in size. There was a moderate severity gastritis. No formal ulcerations, polyps, or any neoplasms. A biopsy was taken of the stomach antrum with visualization of good hemostasis. Endoscope was then advanced to the pylorus and the first and second portion of the duodenum, which appeared normal with no distal obstructions. The endoscope was then slowly withdrawn while taking a second look and suctioning of residual air with no additional findings. Under the same anesthesia, we then proceeded with colonoscopy portion of procedure where a digital rectal examination was performed, which revealed chronic stage II external and internal hemorrhoids, not actively edematous nor inflamed and no bleeding. Normal sphincter tone was felt and there were no palpable masses. The endoscope was then intubated to the anus and rectum gently insufflated. The endoscope was then advanced through the valves of Mcdonald of the rectum with no polyps or any neoplasms identified. Through the sigmoid colon, there were no diverticulosis identified. The endoscope was then advanced to the remainder of the descending, transverse and ascending colon to the cecum. These segments were normal. There were no polyps or any neoplasms identified. The endoscope was then slowly withdrawn while taking a second look and suctioning of residual air with no additional findings. The patient tolerated the procedure well. She does have a moderate gastritis and we will proceed with a trial of adding another PPI acid rubber goods tester on top of her Protonix; however, due to this bloating sensation, this may also be gallbladder related and we will get an outpatient ultrasound as well as possible HIDA scan if the ultrasound is negative to discern a gallbladder etiology. Job ID: [id number] DocumentID: [id number] Dictated Date: 08/15/2020 11:22:12 Store Receiving Specialist Date: 08/15/2020 16:05:48 Dictated By: CRISTIN MUSE MD MTDD
== END 2020-08-15 12:10 | disposition home or self-care (01) ==
LOC: ENDO 09:45
PROVIDERS: ATTEND Surgery
DX: K21.00 Gastro-esophageal reflux disease with esophagitis, without bleeding (principal); K44.9 Diaphragmatic hernia without obstruction or gangrene; K64.1 Second degree hemorrhoids; I10 Essential (primary) hypertension; F41.9 Anxiety disorder, unspecified; M19.90 Unspecified osteoarthritis, unspecified site; E11.9 Type 2 diabetes mellitus without complications; E78.00 Pure hypercholesterolemia, unspecified; M17.10 Unilateral primary osteoarthritis, unspecified knee; Z79.899 Other long term (current) drug therapy; Z86.010 Personal history of colon polyps

== ENCOUNTER → 2020-08-27 | Outpatient (CLI) | payer MEDICARE, OTHER | LOC: LABNPT 06:10 | PROVIDERS: ATTEND Orthopaedic Surgery | DX: Z01.812 Encounter for preprocedural laboratory examination (principal); Z20.822 Contact with and (suspected) exposure to COVID-19 | CPT/HCPCS: 87635 ==

== ENCOUNTER → 2021-02-07 | Outpatient (CLI) | payer MEDICARE, OTHER ==
--- NOTE | 2021-02-07 12:11 | Diagnostic Imaging Report ---
Indication: Routine screening. Comparison is made with prior mammogram from 01/05/2020 and 12/31/2018. 2-D and 3-D bilateral screening mammography was performed with CAD. Scattered fibroglandular densities are identified bilaterally. Occasional tiny circumscribed benign-appearing nodules are identified in both breasts. No spiculated mass or malignant-appearing microcalcifications are seen. Axillae are unremarkable. IMPRESSION: BI-RADS Category 2 No mammographic features suspicious for malignancy are identified. ACR BI-RADS Category 2: Benign findings. Result letter will be mailed to the patient. Note: At least 10% of breast cancer is not imaged by mammography. Dictated by: Dictated on workstation # [id number]
== END ==
LOC: RAD 11:30
PROVIDERS: ATTEND Family Medicine
DX: Z12.31 Encounter for screening mammogram for malignant neoplasm of breast (principal)
CPT/HCPCS: 77063; 77067

== ENCOUNTER → 2021-11-19 | Outpatient (CLI) | payer MEDICARE, OTHER ==
--- NOTE | 2021-11-19 16:26 | Diagnostic Imaging Report ---
INDICATION: Postmenopausal state COMPARISON: 01/28/2018 FINDINGS: AP Spine L1-L4: [BMD (g/cm2): 1.336] [T-Score: 1.1] [Z-Score: 2.1] [BMD Previous: 1.290] [BMD % Change: 3.6] LT Hip Neck: [BMD (g/cm2): 0.930] [T-Score: -0.8] [Z-Score: 0.5] LT Hip Total: [BMD (g/cm2):1.015] [T-Score:0.1] [Z-Score: 1.1] [BMD Previous: 0.983] [BMD % Change: 3.3] RT Hip Neck: [BMD (g/cm2):0.953] [T-Score:-0.6] [Z-Score:0.7] RT Hip Total: [BMD (g/cm2):1.003] [T-score:0.0] [Z-Score:1.0] [BMD Previous:1.004] [BMD % Change:-0.1] *Indicates significant change from prior examination based on 95% confidence level. World Health Organization criteria for BMD interpretation classify patients as Normal (T-score at or above -1.0), Osteopenic (T-score between -1.0 and -2.5) or Osteoporotic (T-score at or below -2.5). LIMITATIONS AND MODIFICATION: None. IMPRESSION: 1. Normal bone mineral density. 2. No significant change in bone mineral density since prior examination. 3. See below National Osteoporosis Foundation guidelines on when to potentially initiate pharmacologic therapy. Based on the National Osteoporosis Foundation Guidelines, pharmacologic treatment should be initiated in any of the following, unless clinical conditions suggest otherwise: * Any patient with prior fragility fracture of the hip or vertebrae. A spine fracture indicates 5X risk for subsequent spine fracture and 2X risk for subsequent hip fracture. * Osteoporosis (T-score <-2.5). * Postmenopausal women and men age 50 and older with low bone mass/osteopenia (T-score between -1.0 and -2.5) by DXA and 10-year major osteoporotic fracture greater than 20% or a 10-year probability of hip fracture greater than 3%. These fracture risks are supplied above in the FRAX score, if applicable. * Clinician judgement and/or patient preferences may indicate treatment for people with 10-year fracture probabilities above or below these levels. Dictated by: Dictated on workstation # [id number]
== END ==
PROVIDERS: ATTEND Family Medicine
DX: M81.0 Age-related osteoporosis without current pathological fracture (principal); Z78.0 Asymptomatic menopausal state
CPT/HCPCS: 77080

== ENCOUNTER → 2022-02-12 | Outpatient (CLI) | payer MEDICARE, OTHER ==
--- NOTE | 2022-02-12 16:46 | Diagnostic Imaging Report ---
INDICATION: Routine screening. COMPARISON: Prior mammograms from 02/07/2021 and 01/05/2020. EXAMINATION: 2D and 3D bilateral screening mammography was performed with CAD. The current study was also evaluated with a Computer Aided Detection (CAD) system. FINDINGS: Scattered fibroglandular densities are identified, bilaterally. Numerous circumscribed nodules appear to be stable. There is a density in the central left breast projected above the nipple line on the MLO view which appears more prominent than prior exams. Additional views are recommended. No corresponding density on the CC view is identified. This most likely represents superimposed tissue. There are benign calcifications present. No malignant-appearing microcalcifications are seen. IMPRESSION: Left breast density. Additional views are recommended for further evaluation. ACR BI-RADS Category 0: Incomplete. (Needs additional imaging evaluation). Result letter will be mailed to the patient. Note: At least 10% of breast cancer is not imaged by mammography. Dictated on workstation # [id number]
== END ==
LOC: RAD 09:45
PROVIDERS: ATTEND Family Medicine
DX: Z12.31 Encounter for screening mammogram for malignant neoplasm of breast (principal)
CPT/HCPCS: 77063; 77067

== ENCOUNTER → 2022-02-21 | Outpatient (CLI) | payer MEDICARE, OTHER ==
--- NOTE | 2022-02-21 14:42 | Diagnostic Imaging Report ---
Indication: Left breast density. Patient presents for additional views. Correlation is made with screening study from 02/12/2022. Unilateral left 2-D and 3-D diagnostic mammography was performed. This includes spot compression ML and conventional 90 degree lateral views. Additional views demonstrate normal dispersion of fibroglandular elements. There are several circumscribed nodules in the left breast which appear benign. No spiculated mass or suspicious microcalcifications are seen. IMPRESSION: BI-RADS Category 2 Additional views fail to demonstrate a discrete mass. Patient may return to routine annual screening mammography. ACR BI-RADS Category 2: Benign findings. Result letter will be mailed to the patient. Note: At least 10% of breast cancer is not imaged by mammography. Dictated by: Dictated on workstation # [id number]
== END ==
LOC: RAD 13:07
PROVIDERS: ATTEND Family Medicine
DX: R92.2 Inconclusive mammogram (principal)
CPT/HCPCS: 77065; G0279

== ENCOUNTER → 2023-03-10 | Outpatient (CLI) | payer MEDICARE, OTHER ==
--- NOTE | 2023-03-10 16:18 | Diagnostic Imaging Report ---
INDICATION: Routine screening. COMPARISON: 02/12/2022 and 02/07/2021. TECHNIQUE: 2D and 3D bilateral screening mammography was performed with CAD. FINDINGS: Scattered fibroglandular densities are identified bilaterally. The parenchymal pattern is stable. No mass or malignant-appearing microcalcifications are seen. The axillae are unremarkable. IMPRESSION: No mammographic features suspicious for malignancy are identified. ACR BI-RADS Category 1: Negative. Result letter will be mailed to the patient. Note: At least 10% of breast cancer is not imaged by mammography. Dictated by: Dictated on workstation # [id number]
== END ==
LOC: RAD 12:45
PROVIDERS: ATTEND Family Medicine
DX: Z12.31 Encounter for screening mammogram for malignant neoplasm of breast (principal)
CPT/HCPCS: 77063; 77067